=== PATIENT | male | born 1985 | race Caucasian/White ===

== ENCOUNTER 2025-01-31 13:22 | Emergency (ER) | payer MEDICAID ==
[~2025-01-31] VITALS: Ht 177.8 cm; Wt 95.8 kg
[2025-01-31 13:34] VITALS: BP 142/93; PULSE 77; RESP 16; O2SAT 100
--- NOTE | 2025-01-31 14:22 | Physician Documentation ---
History of Present Illness ~ Chief Complaint: Medical Clearance Stated Complaint: MED CLEARANCE Time Seen by MD: 14:10 HPI Patient is seen today for med clearance off of fentanyl. Patient states he wants to [facility] and states he would like some comfort meds and a short prescription of Suboxone. Patient states he is now three days out from his last use of fentanyl. He has no other concern or complaint at this time. He denies any chest pain or shortness of breath but does admit to nausea and vomiting and diarrhea. Medication Reconciliation Allergies: Coded Allergies: No Known Allergies (Unverified , 01/31/25) Review of Systems Constitutional: Denies: chills, fever, weakness Eyes: Denies: pain, blurred vision ENT: Denies: ear pain, nose pain, throat pain, mouth pain Respiratory: Denies: cough, shortness of breath Cardiovascular: Denies: chest pain, palpitations Gastrointestinal: Denies: abdominal pain, nausea, vomiting Genitourinary: Denies: burning, dysuria Male Genitalia: Denies: penile discharge, testicular pain Neurological: Denies: headache, dizziness Musculoskeletal: Denies: pain, swelling Integumentary: Denies: rash, lesions Allergic/Immunologic: Denies: hives, itching Hematologic/Lymphatic: Denies: no symptoms reported Psychiatric: Denies: depression, anxiety Physical Exam Vital Signs: Temperature: 97.4, Source: Temporal, Heart Rate: 77, Respiratory Rate: 16, BP: 142/93, Pulse Oximetry: 100, Weight: 95.800 Oxygen Flow Rate: 0 Physical Exam General: Awake and Alert, no acute distress. HEENT: Conjunctiva pink, Sclera clear, Mucus Membranes moist. Neck: Supple without masses and tenderness. Resp: Unlabored. Lungs clear to auscultation bilaterally. Heart: Regular Rate and rhythm, normal S1 and S2 without murmur, rub or gallop. Abdomen: Soft and non tender no organomegaly Extremities: No cyanosis,clubbing or edema. Skin: Warm and Dry. Progress Results/Orders Results/Orders Vital Signs 01/31/25 13:34 Temp 97.4 Pulse 77 Resp 16 B/P (MAP) 142/93 Pulse Ox 100 O2 Flow Rate 0 Medical Decision Making Findings Patient is seen today for med clearance off of fentanyl. Patient states he wants to [facility] and states he would like some comfort meds and a short prescription of Suboxone. Patient states he is now three days out from his last use of fentanyl. He has no other concern or complaint at this time. He denies any chest pain or shortness of breath but does admit to nausea and vomiting and diarrhea. Patient is medically cleared to [facility]. Patient was given comfort meds such as clonidine 0.1 mg one tab 3 times a day and Zofran 8 mg 3 times a day, and loperamide 2 mg one dose after each loose stool, and prescription of Suboxone 8/2 mg, one film sublingual t.i.d. for seven days. Return to ED with any worsening, concerning or changing symptoms. Departure Disposition: HOME / SELF CARE / HOMELESS Impression: Primary Impression: Opioid dependence, uncomplicated Additional Impression: General medical exam Condition: Stable Discharge Instructions: Medical Screening Exam Additional Instructions: Patient is medically cleared to [facility]. Patient was given comfort meds such as clonidine 0.1 mg one tab 3 times a day and Zofran 8 mg 3 times a day, and loperamide 2 mg one dose after each loose stool, and prescription of Suboxone 8/2 mg, one film sublingual t.i.d. for seven days. Return to ED with any worsening, concerning or changing symptoms. Referrals: NO PRIMARY CARE PROVIDER (PCP) Prescriptions Buprenorphine Hcl/Naloxone Hcl (Suboxone 8 Mg-2 Mg Sl Film) 8 Mg-2 Mg Film 1 STRIP SL TID for 7 Days, #21 STRIP Prov: SARAH DUNN 01/31/25 Loperamide HCl (Imodium A-D) 2 Mg Capsule 1 CAP PO Q8H for 5 Days, #15 CAP 0 Refills Prov: SARAH DUNN 01/31/25 ONDANSETRON ODT 4mg tablet (ONDANSETRON ODT) 4 Mg Tab.rapdis 4-8 MG PO BID for 7 Days, #28 TAB Prov: SARAH DUNN 01/31/25 Clonidine HCl (Clonidine HCl) 0.1 Mg Tablet 1 TAB PO TID for 7 Days, #21 TAB 0 Refills Prov: SARAH DUNN 01/31/25 Signature Scribe Signature: No scribe Attestation: No scribe SARAH DUNN Jan 31, 2025 14:22
[2025-01-31] MEDS ORDERED: LOPE-190 PO (14:26)
[2025-01-31] MEDS ORDERED: ONDA-243 PO (14:26)
[2025-01-31] MEDS ORDERED: BUPR1FIL3 SL (14:26)
[2025-01-31] MEDS ORDERED: CLON0.1T2 PO (14:26)
[2025-01-31 14:39] VITALS: TEMP 97.4
== END 2025-01-31 14:43 | disposition home or self-care (01) ==
LOC: ER 13:23
DX: Z00.00 Encounter for general adult medical examination without abnormal findings (principal); F11.20 Opioid dependence, uncomplicated; R19.7 Diarrhea, unspecified
CPT/HCPCS: 99283

== ENCOUNTER 2025-04-20 19:30 | Emergency (ER) | payer MEDICAID ==
[~2025-04-20] VITALS: Ht 175.3 cm; Wt 100.0 kg
[~2025-04-20 19:30] MED LIST: BUPR1FIL20 SL; CLON0.1T2 PO; LOPE-190 PO; ONDA-243 PO
[2025-04-20 20:29] VITALS: BP 122/92; PULSE 88; RESP 15; TEMP 97.6; O2SAT 99
== END 2025-04-20 23:32 | disposition left against medical advice (07) ==
LOC: ER 19:30
DX: M79.601 Pain in right arm (principal); M79.602 Pain in left arm
CPT/HCPCS: 99281